=== PATIENT | female | born 1960 | race Caucasian/White ===

== ENCOUNTER → 2019-10-26 | Outpatient (CLI) | payer BC ==
--- NOTE | 2019-10-26 12:51 | XR ---
Left knee HISTORY: Pain 2 views of the left knee Marginal spurring and joint space loss present in the medial compartment. Alignment and bone minerali zation within normal limits, there is spurring at the patellofemoral joint. No evident sizable joint effusion. IMPRESSION: Osteoarthritis.
--- NOTE | 2019-10-26 12:52 | XR ---
Left hand HISTORY: Pain in thumb 2 views of left hand There is spurring and joint space loss at the carpometacarpal joint of the first digit, metacarpophal angeal joint of the first digit. Alignment and bone mineralization are maintained. Mild spurring also present at the posterior interphalangeal joints. IMPRESSION: Osteoarthritis.
== END | disposition home or self-care (01) ==
LOC: RADXRMAIN 09:03
PROVIDERS: ATTEND Family Medicine
DX: M19.042 Primary osteoarthritis, left hand (principal); M17.12 Unilateral primary osteoarthritis, left knee

== ENCOUNTER → 2020-07-02 | Outpatient (CLI) | payer BC | END | disposition home or self-care (01) | LOC: LABWHC1 12:25 | PROVIDERS: ATTEND Family Medicine | DX: Z01.818 Encounter for other preprocedural examination (principal); Z20.828 Contact with and (suspected) exposure to other viral communicable diseases; R19.7 Diarrhea, unspecified; J02.9 Acute pharyngitis, unspecified | CPT/HCPCS: U0003; C9803 ==

== ENCOUNTER 2020-07-17 05:45 | Day surgery (SDC) | payer BC ==
[2020-07-09 09:23] VITALS: BMI 40.3
--- NOTE | 2020-07-16 15:55 | HP ---
HISTORY AND PHYSICAL DATE OF SURGERY: 07/17/2020. Destiny Pearson is a 59-year-old patient seen with progressive left knee pain. We discussed options. She elected to proceed with total knee arthroplasty. Consent was obtained. PAST MEDICAL HISTORY: Hypertension, hyperlipidemia. PAST SURGICAL HISTORY: Knee arthroscopy. DAILY MEDICATIONS: Amlodipine, atorvastatin. ALLERGIES: None. SOCIAL HISTORY: She denies current tobacco use. PHYSICAL EVALUATION OF THE LEFT KNEE: Range of motion 0-130. Mild effusion. Tenderness medial joint line. Crepitus medial patellofemoral compartments range of motion. Pain with patellofemoral compression. Ligaments stable. Hip rotation without pain. Distal neurovascular exam is intact. RADIOGRAPHS: Left knee reveal severe osteoarthritic changes. IMPRESSION: 1. Left knee osteoarthritis. 2. Hypertension. 3. Hyperlipidemia. PLAN: Left total knee arthroplasty. MMODL / IJN: [id number] /
[~2020-07-17 05:45] MED LIST: ACETAMINOPHEN TAB 500 MG TAB PO ONE; FAMOTIDINE 20 MG/2 ML VIAL IV PRN; LACTATED RINGERS 1,000 ML IV SCH; LIDOCAINE 1% (10MG/ML) FOR IV START INTRADERMA PRN; MELOXICAM 7.5 MG TAB PO ONE; ONDANSETRON 4 MG/2 ML VIAL IVP PRN; TRANEXAMIC ACID 1,000 MG in SODIUM CHLORIDE 0.9% 100 ML IVPB ONE; ceFAZolin 3 GM in SODIUM CHLORIDE 0.9% 100 ML IVPB ONE
[2020-07-17] MEDS ORDERED: ROPIVACAINE 246.25 MG, EPINEPHrine 0.5 MG, KETOROLAC 30 MG, cloNIDine HCL/PF 80 MCG, WA... MISCELLANE ONE ×5 (06:00)
[2020-07-17] MEDS ORDERED: MIDAZOLAM 2 MG/2 ML VIAL IV ONE (06:50)
[2020-07-17] MEDS ORDERED: fentaNYL (PF) 50 MCG/ML 2 ML AMP IV ONE (06:50)
[2020-07-17] MEDS ORDERED: SODIUM CHLORIDE 0.9% 100 ML BAG ONE (07:25)
[2020-07-17] MEDS ORDERED: GLYCOPYRROLATE 0.2 MG/ML 2 ML VIAL ONE (07:25)
[2020-07-17] MEDS ORDERED: MIDAZOLAM 2 MG/2 ML VIAL ONE (07:25)
[2020-07-17] MEDS ORDERED: LIDOCAINE 1% INJ 10MG/ML (20 ML MDV) ONE (07:25)
[2020-07-17] MEDS ORDERED: HYDROmorphone (PF) 1 MG/ML ONE (07:25)
[2020-07-17] MEDS ORDERED: NEOSTIGMINE 1 MG/ML 10 ML VIAL ONE (07:25)
[2020-07-17] MEDS ORDERED: fentaNYL (PF) 50 MCG/ML 2 ML AMP ONE (07:25)
[2020-07-17] MEDS ORDERED: TRANEXAMIC ACID 1,000 MG/10 ML VIAL ONE (07:25)
[2020-07-17] MEDS ORDERED: PROPOFOL 10 MG/ML 20 ML VIAL IV ONE (07:25)
[2020-07-17] MEDS ORDERED: ROCURONIUM BROMIDE 10 MG/ML 5 ML VIAL IV ONE (07:25)
[2020-07-17] MEDS ORDERED: SUCCINYLCHOLINE CHLORIDE 100 MG/5 ML SYR IV ONE (07:25)
[2020-07-17] MEDS ORDERED: ceFAZolin 3,000 MG in SODIUM CHLORIDE 0.9% IRRIGATIO 3,000 ML IRRIGATION ONE (07:59)
--- NOTE | 2020-07-17 08:28 | P.ANPRN ---
Procedure Note - Anesthesia - Nerve Block Performed Left Adductor Canal Time Out Performed: Yes (06:50) Date of Procedure: 07/17/20 Procedure Start Time: :50 Procedure Stop Time: 07:04 Location of Patient: PreOp Indication: Acute Post-Operative Pain, Requested by Surgeon (Dr Marquez) Sedation Type: Sedate with meaningful contact maintained Preparation: Sterile Prep, Sterile Dressing Position: Supine Catheter: Indwelling Needle Types: Pajunk Needle Gauge: 21 Ultrasound used to visualize needle placement: Yes Ultrasound used to observe medication spread: Yes Injectate: 0.5% Ropivacaine (see comment for volume) (20cc) Blood Aspirated: No Pain Paresthesia on Injection Noted: No Resistance on Injection: Normal Image Stored and Saved: Yes Events: Uneventful and Well Tolerated
[2020-07-17] MEDS ORDERED: ROPIVACAINE 0.2%-NS ON-Q PUMP 1,090 MG, EMPTY PAIN BALL 1 EACH MISCELLANE PRN (08:45)
[2020-07-17] MEDS ORDERED: LACTATED RINGERS 1,000 ML IV ONE ×2 (09:09→09:23)
--- NOTE | 2020-07-17 09:20 | P.OP ---
Date of Procedure: 07/17/20 Preoperative Diagnosis: Left knee osteoarthritis Postoperative Diagnosis: Left knee osteoarthritis Procedure(s) Performed: Left total knee arthroplasty Implants: 1. Depuy attune size 6 narrow left cruciate retaining cemented femur 2. Depuy attune size 5 fixed bearing cemented tibial baseplate 3. Depuy attune size 6 fixed bearing cruciate retaining 6 mm polyethylene tibial insert 4. Depuy attune 38 mm all polyethylene cemented patella Anesthesia: GETA, regional (Adductor canal catheter), local Surgeon: Manan Marquez Counter Server #1: Je Modi Estimated Blood Loss (ml): 50 Pathology: other (Bone) Condition: stable Disposition: PACU Indications for Procedure: 59-year-old patient seen with symptomatic left knee osteoarthritis. After having treatment options discussed, she elected to proceed with total knee arthroplasty. Operative Findings: See description of procedure Description of Procedure: Patient was taken to the operative suite after having an adductor canal catheter placed by the department of anesthesia. Patient underwent a general anesthetic by the department of anesthesia. Patient was given preoperative IV intake antibiotics and TXA. A well-padded tourniquet was placed about the left lower extremity. The lower extremity was then prepped and draped in the normal sterile orthopedic fashion. The extremity was elevated, a tourniquet was insufflated to 300. A standard anterior incision was made sharply through skin. Dissection was taken down through the subcutaneous soft tissues down to the extensor mechanism. A medial arthrotomy was performed, patella was everted and knee was flexed. There was advanced osteoarthritis noted. I introduced my distal intramedullary femoral drill. I then introduced the distal femoral cutting jig. Marvin ESTRADA secured the cutting jig with 2 pins. I held retractors in position while Marvin ESTRADA performed the distal femoral resection through the guide area we now removed her distal femoral cutting guide. We now placed our 4-in-1 femoral cutting block and positioned and it was secured with 2 pins by Marvin ESTRADA while I held the block in position. The distal femoral finishing was now completed. A proximal tibial cutting guide was positioned. I held the guide in the appropriate position with both hands well Marvin ESTRADA inserted stabilizing pins into the guide. Proximal tibial cut was made. We now placed a trial femoral component into position, along with an appropriate size tibial tray and insert. We now took the knee through range of motion and had full extension good flexion and good overall soft tissue balance noted. The patella was everted and stabilized with 2 towel clips held by Marvin ESTRADA while I performed a flush with patellar quad tendon utilizing a fresh sawblade. We templated the patella, appropriate drill holes were made. An appropriate trial patella was positioned, knee was taken through full range of motion with the patella tracking very nicely. The trial patella was removed. Drill holes were made through the femoral component. All trial components were removed after marking off the appropriate rotation of the tibia. Retractors were now positioned along the proximal tibia. An appropriate keel punch was made with the appropriate size tibial guide by myself on Marvin ESTRADA assisted by holding retractors. At this point appropriate size implants were chosen and opened. The joint was irrigated copiously with pulse lavage mechanical irrigation. The posterior capsule was infiltrated with local analgesic. The wound was irrigated with pulse lavage mechanical irrigation. We mixed antibiotic methylmethacrylate. We placed the knee into flexion. We placed multiple retractors assisted by Marvin ESTRADA to expose the proximal tibia. Once the methyl methacrylate was ready, the tibial component was cemented into place removing any excess methylmethacrylate form by both myself and Marvin ESTRADA. The femoral component was cemented into place removing the removing any excess methylmethacrylate performed by both myself and Marvin ESTRADA. We then inserted the appropriate size polyethylene tibial insert. We made sure that it was locked into position. We took the knee into full extension, and then back in a flexion making sure we had removed any excess methylmethacrylate. The patellar component was then cemented down and secured with clamp. Excess methylmethacrylate removed. We kept the knee in full extension, patellar clamp in position until methylmethacrylate had hardened. Once it had hardened the sharmila tellgianni clamp was removed. The knee was taken through full range of motion. The patella tracked nicely. There was good soft tissue balancing. The tourniquet was now released. Additional hemostasis was achieved via electrocautery. A second gram of TXA was given. The wound again was irrigated with pulse lavage mechanical irrigation. The superficial soft tissues were infiltrated local analgesic. The extensor mechanism was repaired with Vicryl. We checked the repair with range of motion and it was stable. The subcutaneous soft tissues were repaired with Vicryl in layers. The skin was approximated with pernio/Dermabond. Sterile dressings were applied followed by loose web roll and Rk bandage. The patient was transferred to a bed, and taken to recovery in stable and satisfactory condition. Marvin ESTRADA assisted with this complex procedure.
[2020-07-17] MEDS ORDERED: NALOXONE 0.4 MG/ML 1 ML VIAL IV PRN (09:23)
[2020-07-17] MEDS ORDERED: ONDANSETRON 4 MG/2 ML VIAL IVP PRN (09:23)
[2020-07-17] MEDS ORDERED: HYDROcodone/APAP 5-325MG 1 EACH TAB PO PRN ×2 (09:23)
[2020-07-17] MEDS ORDERED: HYDROmorphone 0.5 MG/0.5 ML SYRINGE IVP PRN ×2 (09:23)
[2020-07-17] MEDS ORDERED: HYDROmorphone 1 MG/ML 1 ML SYRINGE IVP PRN (09:23)
[2020-07-17 09:42] VITALS: TEMP 97.5
[2020-07-17] MEDS: HYDROmorphone 0.5 MG/0.5 ML SYRINGE IVP PRN ×4 (10:03→10:48)
--- NOTE | 2020-07-17 10:21 | XR ---
EXAMINATION TYPE: XR knee limited LT DATE OF EXAM: 07/17/2020 COMPARISON: NONE TECHNIQUE: Two views submitted HISTORY: Post op FINDINGS: There is a prosthetic knee in near anatomic alignment. There is soft tissue edema and emphysema. IMPRESSION: 1. Postoperative change. Appears in near-anatomic alignment
[2020-07-17 11:45] VITALS: RESP 18
[2020-07-17] MEDS ORDERED: HYDROcodone/APAP 5-325MG 1 EACH TAB PO ONE (12:58)
[2020-07-17 15:58] VITALS: BP 121/74; PULSE 73
== END 2020-07-17 16:12 | disposition home health service (06) ==
LOC: OR 05:45
PROVIDERS: ATTEND Orthopaedic Surgery
DX: M17.12 Unilateral primary osteoarthritis, left knee (principal); I10 Essential (primary) hypertension; E78.5 Hyperlipidemia, unspecified; Z79.899 Other long term (current) drug therapy; Z88.5 Allergy status to narcotic agent
CPT/HCPCS: 97110; 97161; 64448; 76942; 88300; 73560; 27447; C1776; C1713; J2250; J0171; J2710; J0690 ×2; J2405; J2001; J3010; J1885; J1170 ×2; J2795 ×2; J0330; J2704; J0735

== ENCOUNTER → 2022-01-16 | Outpatient (CLI) | payer BC ==
--- NOTE | 2022-01-16 13:03 | XR ---
EXAMINATION TYPE: XR Hip LT and AP Pelvis DATE OF EXAM: 01/16/2022 COMPARISON: NONE HISTORY: Trauma 4 weeks prior and pain TECHNIQUE: A single AP view of the pelvis is obtained. Two views of the left hip are obtained. FINDINGS: There is no acute fracture/dislocation evident in the pelvis. The sacroiliac joints appea r symmetric and unremarkable. The overlying soft tissue appears unremarkable. There is osteoarthriti c change greater on the left, concentric joint space loss and marginal spurring, subchondral sclerosi s is present. Some minimal remodeling present at the right femoral head with concentric joint space l oss. Two views of left hip show no acute fracture or dislocation. No focal lytic or sclerotic lesion seen in the proximal left femur. The overlying soft tissue is unremarkable. IMPRESSION: There is no acute fracture or dislocation in the pelvis or left hip. Osteoarthritis is s uspected.
== END | disposition home or self-care (01) ==
LOC: RADXRMAIN 08:27
PROVIDERS: ATTEND Nurse Practitioner Family
DX: M25.552 Pain in left hip (principal); S79.912A Unspecified injury of left hip, initial encounter; X58.XXXA Exposure to other specified factors, initial encounter
CPT/HCPCS: 73502

== ENCOUNTER → 2022-08-26 | Outpatient (CLI) | payer BC ==
--- NOTE | 2022-08-26 13:56 | P.SLEEP ---
History of Present Illness DATE: 08/26/2022 CONSULTATION/NEW PATIENT EVALUATION HISTORY OF PRESENT ILLNESS/SLEEP-WAKE EVALUATION: 61year old lady had been evaluated in the sleep center for obstructive sleep apnea hypopnea syndrome. Patient has history of obstructive sleep apnea-hypopnea syndrome for about 15 years. She is on treatment with CPAP, but still snoring wakes up from sleep multiple times. She increased to wait on around 58 pounds since previous sleep study. CPAP unit is extremely old, pressure is 7 cm of water, unit doesn't have information about apnea-hypopnea index. SLEEP SCHEDULE: Usually sleep schedule on weekdays from 9 PM to 57 AM, during days off from 9 PM to 6-7 AM. FALLING ASLEEP: Patient does have problems with the falling asleep, although no TV in bedroom. DURING SLEEP: Patient wakes up from sleep at least 12 times while using her CPAP with one episode of nocturia. Patient has significant amount of movements during the night sometimes her cover is out. No history of hypnogogical hallucinations, sleep paralysis, or cataplexy. Positive history of grinding teeth. DURING THE DAY/WAKE STATE: In the morning patient wake up tired, falling asleep during the day. [place] sleepiness scale is significantly increased to 18. Patient may take nap around 11:30 AM. PAST MEDICAL HISTORY: Depression, hypertension, hyperlipidemia. PAST SURGICAL HISTORY: Left knee replacement, neck surgery, surgery for nasal septum deviation, partial hysterectomy. MEDICATIONS: Atorvastatin 20 mg once a day, amlodipine/benazepril 540 milligrams once a day, duloxetine 60 mg 2 tablets at night. SOCIAL HISTORY: Negative for smoking, alcohol consumption occasional. FAMILY HISTORY: Stroke, arthritis, cancer, diabetes. REVIEW OF SYSTEMS: Multiple awakenings from sleep while on treatment with CPAP. No fevers. No double vision. No recent chest pain. No shortness of breath. No abdominal pain. No bleeding episodes. No blood in urine. No seizure episodes. PHYSICAL EXAMINATION: GENERAL: A pleasant patient without any distress. VITAL SIGNS: BP 141/90 , HR 80 , RR 16 , weight 258 pounds, height 5 foot 9 inches, body mass index 38.0 . HEENT: PERRLA, EOMI. Evaluation of oropharynx showed tongue protrudes midline, low position of soft palate Mallampati 4. NECK: Supple. No JVD. Thyroid is not palpable. 18 inches in circumference. LUNGS: Clear to percussion and to auscultation. Good air exchange. No wheezing or rhonchi. HEART: S1, S2 regular. No murmurs, gallops or rubs. ABDOMEN: Soft and nontender. Bowel sounds are present. No organomegaly appreciated. Obese. EXTREMITIES: No clubbing or cyanosis. EMOTIONAL SUPPORT TEACHER: Awake, alert, and oriented x3. Cranial nerves 2 to 7 intact. There is no fasciculation or atrophy noted. No focal deficits observed. ASSESSMENT: 1. History of obstructive sleep apnea-hypopnea syndrome for 15 years. Results of previous sleep studies unavailable. Patient is on CPAP, but wakes up from sleep multiple times, CPAP unit doesn't have information about apnea-hypopnea index. Extremely low position of soft palate Mallampati 4, wide neck 18 inches in circumference, sleepiness with high [place] Sleepiness Scale of 18. Obstructive sleep apnea hypopnea syndrome. 2. Obesity body mass index 38. 3 hypertension. 4. History of depression. 5 hyperlipidemia. 6. Significant amount of movements during the night for restless leg symptoms and possibly periodic limb movements.. 7. Grinding teeth. 8. Status post nasal surgery for nasal septum deviation. 9. Status post neck surgery. 10. Status post left knee replacement. 11. Status post partial hysterectomy. 12 insomnia with difficulties to initiate sleep, could be secondary to restless leg symptoms. PLAN: 1. Polysomnography for evaluation of patient's breathing during sleep and to check for periodic limb movements. 2. CPAP/BiPAP titration if sleep study confirms obstructive sleep apnea- hypopnea syndrome. 3. Preferable position during sleep on the side. 4. No driving if patient feels any sleepiness. Patient is aware of civil and criminal liability for unsafe driving. 5. Sleep hygiene with regular sleep time for at least 7.5-8 hours. 6. Watching and losing weight. Thank you very much for referring this patient for consultation. Sincerely, Sanjay Soriano MD, PhD, FAASM. Diplomat of [place] [employer], Sleep Medicine Board by [place] [employer] [place] [employer] Instrument Calibrator of [facility] [place] Medications and Allergies Home Medications Medication Instructions Recorded Confirmed Type Atorvastatin [Lipitor] 20 mg PO HS 07/09/20 07/09/20 History DULoxetine HCL [Cymbalta] 120 mg PO HS 07/09/20 07/09/20 History amLODIPine BESYLATE/BENAZEPRIL 1 cap PO HS 07/09/20 07/09/20 History [amLODIPine BESYLATE/BENAZEPRIL 5-40 MG] Aspirin [Adult Low Dose Aspirin EC] 81 mg PO BID #60 tablet. 07/17/20 Rx Docusate [Colace] 100 mg PO DAILY #30 capsule 07/17/20 Rx HYDROcodone/APAP 7.5-325MG [[place] 1 each PO Q6HR PRN #21 tab 07/17/20 Rx 7.5] traMADol HCl [Ultram] 50 mg PO Q6H PRN #28 tab 07/17/20 Rx Allergies Allergy/AdvReac Type Severity Reaction Status Date / Time codeine AdvReac Nausea Verified 07/17/20 06:47 Sleep Note - Sleep Note Sleep Note: Temperature: Pulse Rate: Respiratory Rate: Blood Pressure: SpO2: Height: Weight: BMI: Neck Circumference:
== END ==
LOC: SLEEP 13:05
PROVIDERS: ATTEND Internal Medicine
DX: G47.33 Obstructive sleep apnea (adult) (pediatric) (principal); E78.5 Hyperlipidemia, unspecified; I10 Essential (primary) hypertension; F32.A Depression, unspecified; G25.81 Restless legs syndrome; G47.63 Sleep related bruxism; J34.2 Deviated nasal septum; Z98.890 Other specified postprocedural states; Z96.652 Presence of left artificial knee joint; Z90.711 Acquired absence of uterus with remaining cervical stump; Z99.89 Dependence on other enabling machines and devices; Z88.5 Allergy status to narcotic agent
CPT/HCPCS: 99211

== ENCOUNTER → 2022-11-17 | Outpatient (CLI) | payer BC ==
--- NOTE | 2022-11-18 07:45 | MM ---
Reason for Exam: Screening (asymptomatic). Patient History: Menarche at age 15. First Full-Term at age 27. Hysterectomy at age 45. Postmenopausal. Risk Values: Rachel 5 year model risk: 1.5%. NCI Lifetime model risk: 7.0%. Tissue Density: The breast tissue is heterogeneously dense. This may lower the sensitivity of mammography. Findings: Analyzed By CAD. There is no suspicious group of microcalcifications or new suspicious mass in either breast. Overall Assessment: Negative, BI-RAD 1 Management: Screening Mammogram of both breasts in 1 year. A clinical breast exam by your physician is recommended on an annual basis and results should be correlated with mammographic findings. [facility] will attempt to contact patient to return for supplemental views and ultrasound if indicated. Electronically signed and approved by: Froilan Simeon DO
== END | disposition home or self-care (01) ==
LOC: RADMAMWWP 09:36
PROVIDERS: ATTEND Family Medicine
DX: Z12.31 Encounter for screening mammogram for malignant neoplasm of breast (principal); Z78.0 Asymptomatic menopausal state
CPT/HCPCS: 77067

== ENCOUNTER → 2022-11-20 | Outpatient (CLI) | payer BC, OTHER ==
--- NOTE | 2022-11-20 15:27 | CT ---
EXAMINATION: CT ABDOMEN AND PELVIS WITHOUT IV CONTRAST DATE OF EXAMINATION: 11/20/2022. COMPARISON: Pelvis on 02/11/2022. INDICATION: Orbital inguinal hernia repair on 09/24/2022 with left inguinal pain. PROCEDURE: Axial CT of the abdomen and pelvis was performed with sagittal and coronal reformatted i mages without contrast enhancement. The exam is limited because some types of pathology may not be ad equately demonstrated due to lack of contrast enhancement. CT dose lowering techniques were used, to include: automated exposure control, adjustment for patient size, and/or use of iterative reconstruct ion. FINDINGS: LOWER CHEST : The visualized lung bases are clear. There are no pleural or pericardial effusions. ABDOMEN: Liver and Biliary system: Normal. Adrenal glands: Normal. Kidneys and ureters: There are no renal stones or hydronephrosis. No ureteral stones are present.. Spleen: Normal. Pancreas: Normal. Gallbladder: Normal. Lymph nodes, Peritoneum and mesentery: There is no mesenteric or retroperitoneal lymphadenopathy. Gastrointestinal tract: There are no dilated loops of bowel or free intraperitoneal air. . The appe ndix is normal. There is mild sigmoid colonic diverticulosis without evidence of diverticulitis. Aorta/IVC: Mild vascular calcification throughout the abdominal aorta without evidence of aneurysma l dilation. IVC normal. Abdominal wall: Normal. PELVIS: Fluid: There is no free fluid in the pelvis. Lymph Nodes: There is no pelvic or inguinal lymphadenopathy.. Urinary bladder: Normal. BONES: There are no osseous destructive lesions.. ADDITIONAL SIGNIFICANT FINDINGS: None. IMPRESSION: 1. No evidence of recurrent inguinal hernia. 2. Renal stones or hydronephrosis. 3. No bowel obstruction or appendicitis. 4. Diverticulosis without evidence of diverticulitis.
== END | disposition home or self-care (01) ==
LOC: RADCTMAIN 13:32
PROVIDERS: ATTEND Family Medicine
DX: K40.20 Bilateral inguinal hernia, without obstruction or gangrene, not specified as recurrent (principal); K57.30 Diverticulosis of large intestine without perforation or abscess without bleeding
CPT/HCPCS: 74176

== ENCOUNTER → 2023-07-14 | Outpatient (CLI) | payer BC ==
--- NOTE | 2023-07-14 13:25 | P.PN ---
Subjective DATE: 07/14/2023 FOLLOW UP VISIT. Patient with obstructive sleep apnea hypopnea syndrome return to sleep center for follow-up visit. Information from previous visit have been reviewed. Patient is using PAP equipment every night for the whole night, getting PAP supplies in time. The patient does not have significant problems with the mask, PAP unit and humidification. [place] sleepiness scale is increased to 13. I checked information from PAP unit. PAP unit pressure 5-12, average 11.7 cm H2O. Usage is 100 % for more then 4 hours, average 10 hours per night. Leak is 3.9 l/m, which is in acceptable range. Apnea Hypopnea Index is 2.3, which is normal. MEDICATIONS:1. Atorvastatin 20 mg once a day 2. Amlodipine/benazepril 5-40 mg once a day 3. Duloxetine 60 mg 2 tablets once a day During physical exam: GENERAL: A pleasant patient without any distress. VITAL SIGNS: BP 156/93, HR 80, RR 12 , weight 289.4, temperature 97.9, oxygen saturation at room air 95 % . HEENT: PERRLA, EOMI.low position of soft palate, Mallapati 4 . NECK: Supple. No JVD. LUNGS: Clear to percussion and to auscultation. Good air exchange. No wheezing or rhonchi. HEART: S1, S2 regular. ABDOMEN: Soft and nontender. Slightly obese EXTREMITIES: No clubbing or cyanosis. PRESSER AND BLOCKER KNITTED GOODS: Awake, alert, and oriented x3. No focal deficit. Impressions: 1. Obstructive sleep apnea-hypopnea syndrome. Patient demonstrated great compliance with treatment, benefiting from treatment. 2. Obesity, BMI 38.0, patient lost 4 pounds comparing with previous visit. 3. Hypertension. 4. History of depression. 5. History of insomnia with difficulties to initiate sleep. 6. Hyperlipidemia. 7. Status post surgical treatment for nasal septum deviation. 8. History of periodic limb movements by results of sleep study, no clinical complaints. 9. Grinding teeth. 10. Status post left knee replacement. 11. Status post hysterectomy. Plan: 1. Continue using PAP equipment every night for the whole night. 2. To change air filter at least 1-2 times per month. 3. PAP unit should stay lower then position of the head. 4. Advised patient to remove all remaining water from humidifier canister daily and make it dry after each usage. Refill canister with fresh distilled water be fore each usage. 5. Sleep hygiene with regular time in bed for at least 8 hours. 6. Precautions related to driving. No driving if feel any sleepiness. 7. I will maintain prescription for PAP supplies including mask, tube, filters. 8. Follow up visit in 6 months or earlier if patient has any problems. 9. Watching and continue losing weight. Thank you very much for allowing me to participate in the management of your patient. Sanjay Soriano MD, PhD, FAASM. Diplomat of [place] [employer], Sleep Medicine Board by [place] [employer] Manager Policy of [facility] [place]
== END ==
LOC: 3 N SLEEP 10:03
PROVIDERS: ATTEND Internal Medicine
DX: G47.33 Obstructive sleep apnea (adult) (pediatric) (principal); I10 Essential (primary) hypertension; F32.A Depression, unspecified; E66.9 Obesity, unspecified; E78.5 Hyperlipidemia, unspecified; Z98.890 Other specified postprocedural states; Z68.38 Body mass index [BMI] 38.0-38.9, adult; Z79.899 Other long term (current) drug therapy; Z90.710 Acquired absence of both cervix and uterus; Z99.89 Dependence on other enabling machines and devices; Z88.5 Allergy status to narcotic agent
CPT/HCPCS: 99212

== ENCOUNTER → 2024-01-26 | Outpatient (CLI) | payer BC ==
[2024-01-26 11:39] VITALS: BP 159/88; PULSE 77; RESP 18; TEMP 97.6
--- NOTE | 2024-01-26 11:50 | P.PN ---
Subjective DATE: 01/26/2024 FOLLOW UP VISIT. Patient with obstructive sleep apnea hypopnea syndrome return to sleep center for follow-up visit. Information from previous visit have been reviewed. Patient is using PAP equipment every night for the whole night, getting PAP supplies in time. The patient does not have significant problems with the mask, PAP unit and humidification. [place] sleepiness scale is 8, which is normal. I checked information from PAP unit. PAP unit pressure 5-12, average 11.6 cm H2O. Usage is 100% and 97% for more then 4 hours, average 10.2 hours per night. Leak is 6.8 l/m, which is in acceptable range. Apnea Hypopnea Index is 0.9, which is normal. MEDICATIONS:1. Duloxetine 60 mg 2 capsules at night 2. Amlodipinebenazepril 5-40 mg once a day 3. Atorvastatin 40 mg once at night During physical exam: GENERAL: A pleasant patient without any distress. VITAL SIGNS: Please see below. HEENT: PERRLA, EOMI.low position of soft palate, Mallapati 4 . NECK: Supple. No JVD. LUNGS: Clear to percussion and to auscultation. Good air exchange. No wheezing or rhonchi. HEART: S1, S2 regular. ABDOMEN: Soft and nontender. Obese EXTREMITIES: No clubbing or cyanosis. CORPORATE WEBMASTER: Awake, alert, and oriented x3. No focal deficit. Impressions: 1. Obstructive sleep apnea-hypopnea syndrome. Patient demonstrated great compliance with treatment, benefiting from treatment. 2. Obesity, patient lost 39 pounds compared with previous visit. 3. Hypertension. 4. Hyperlipidemia. 5. History of depression. 6. History of insomnia. 7. Status post surgical treatment for nasal septal deviation. 8. Status post hysterectomy. 9. Status post left knee replacement. Plan: 1. Continue using PAP equipment every night for the whole night. 2. To change air filter at least 1-2 times per month. 3. PAP unit should stay lower then position of the head. 4. Advised patient to remove all remaining water from humidifier canister daily and make it dry after each usage. Refill canister with fresh distilled water before each usage. 5. Sleep hygiene with regular time in bed for at least 8 hours. 6. Precautions related to driving. No driving if feel any sleepiness. 7. I will maintain prescription for PAP supplies including mask, tube, filters. 8. Watching and continue losing weight. 9. Follow up visit in 6 months or earlier if patient has any problems. Thank you very much for allowing me to participate in the management of your patient. Sanjay Soriano MD, PhD, FAASM. Diplomat of [place] [employer], Sleep Medicine Board by [place] [employer] Stator Connector of [facility] [place] Objective - Vital Signs Vital signs: Vital Signs Temp 97.6 F 01/26/24 11:23 Pulse 77 01/26/24 11:23 Resp 18 01/26/24 11:23 BP 159/88 01/26/24 11:23 Pulse Ox 95 01/26/24 11:23 FiO2
== END ==
LOC: 3 N SLEEP 10:57
PROVIDERS: ATTEND Internal Medicine
DX: G47.33 Obstructive sleep apnea (adult) (pediatric) (principal); E66.9 Obesity, unspecified; I10 Essential (primary) hypertension; E78.5 Hyperlipidemia, unspecified; F32.A Depression, unspecified; G47.00 Insomnia, unspecified; Z90.710 Acquired absence of both cervix and uterus; Z98.890 Other specified postprocedural states; Z99.89 Dependence on other enabling machines and devices; Z88.5 Allergy status to narcotic agent; Z79.82 Long term (current) use of aspirin; Z79.899 Other long term (current) drug therapy
CPT/HCPCS: 99212

== ENCOUNTER → 2024-10-10 | Outpatient (CLI) | payer OTHER ==
--- NOTE | 2024-10-10 12:13 | XR ---
EXAMINATION TYPE: XR Hip Limited LT DATE OF EXAM: 10/10/2024 11:42 AM COMPARISON: 01/16/2022 CLINICAL INDICATION: Female, 63 years old with history of M25.561 PAIN IN RIGHT HIP M25.552 PAIN IN L EFT HIP; PHH, pain TECHNIQUE: XR Hip Limited LT; Frontal view FINDINGS: No evidence for acute process, joint dislocation or significant soft tissue swelling. Osteo phyte formation of the superior acetabulum of the hip. There is moderate joint space narrowing. IMPRESSION: 1. No evidence for acute process. 2. Moderate to severe hip osteoarthrosis. [facility], , 10/10/2024 12:11 PM
--- NOTE | 2024-10-10 12:16 | XR ---
EXAMINATION TYPE: XR knee limited RT DATE OF EXAM: 10/10/2024 11:42 AM COMPARISON: None CLINICAL INDICATION: Female, 63 years old with history of M25.561 PAIN IN RIGHT HIP M25.552 PAIN IN L EFT HIP; PHH, pain TECHNIQUE: XR knee limited RT 3 views submitted. FINDINGS: No evidence of any acute osseous pathology, soft tissue swelling, or joint effusion is no marvin. IMPRESSION: 1. No acute osseous pathology. 2. Moderate tricompartmental osteoarthritic changes. [facility], , 10/10/2024 12:14 PM
== END | disposition home or self-care (01) ==
LOC: RADXRMAIN 11:09
PROVIDERS: ATTEND Family Medicine
DX: M16.12 Unilateral primary osteoarthritis, left hip (principal); M17.11 Unilateral primary osteoarthritis, right knee
CPT/HCPCS: 73501